=== PATIENT | male | born 1985 | race Hispanic/Latino ===

== ENCOUNTER 2018-08-08 07:54 | Outpatient (CLI) | payer OTHER ==
--- NOTE | 2018-08-08 09:21 | ULT ---
LIMITED SONOGRAM OF THE LEFT UPPER QUADRANT SOFT TISSUES: DATE: 08/08/2018. HISTORY: Abdominal wall mass, palpable abnormality. FINDINGS: Limited sonographic evaluation of the left upper quadrant was performed. No mass or cystic lesion is seen to correspond to the patient's palpable abnormality. Imaging of the soft tissues in the right upper quadrant was also performed and the soft tissues overall have a symmetric appearance. IMPRESSION: No cystic or solid lesion or other abnormality is seen to correspond to the patient's clinically palp able abnormality. Depending on clinical concern, a CT examination can be performed for further evalu ation. POS: ANTONY
== END 2018-08-08 07:55 | disposition home or self-care (01) ==
LOC: SCSULT 07:54
PROVIDERS: ATTEND Family Medicine
DX: M79.9 Soft tissue disorder, unspecified (principal)
CPT/HCPCS: 76705

== ENCOUNTER 2020-04-22 10:02 | Outpatient (CLI) | payer OTHER ==
--- NOTE | 2020-04-22 11:46 | CT ---
CT ABDOMEN AND PELVIS WITH AND WITHOUT IV CONTRAST 04/22/2020 CLINICAL INFORMATION: Microscopic hematuria COMPARISON: None. Technique: Multiple contiguous axial CT images are obtained through the abdomen and pelvis with IV contrast. Cor onal reformatted images are provided. FINDINGS: Lower Chest: Lung bases are clear. Vessels: Abdominal aorta is normal in caliber without evidence of an aortic dissection. Abdomen: Portal vein:Patent Gallbladder: Within normal limits for CT imaging. Liver: within normal limits. Spleen: within normal limits. Pancreas: within normal limits. Adrenals: within normal limits. Kidneys: No renal or ureteral calculi are seen bilaterally, and there is no hydronephrosis. No enhanc ing renal mass is identified. No ureteral calculus is present Bowel: Small amount retained fecal material seen throughout the colon. Loops of small bowel are alie l in caliber Appendix: The appendix is visualized and normal in caliber. Peritoneum: No ascites or free air; no fluid collection. Mesentery and Retroperitoneum: No enlarged mesenteric or retroperitoneal lymph nodes. Abdominal Wall: within normal limits. Pelvis: Reproductive Organs: No pelvic masses. Pelvis within normal limits. Bladder: within normal limits. Bones: No suspicious lytic or sclerotic osseous lesions are identified. IMPRESSION: 1. No acute findings in the abdomen or pelvis. 2. No renal or ureteral calculi are seen bilaterally, and there is no hydronephrosis. No enhancing re nal mass is identified.
== END 2020-04-22 10:03 | disposition home or self-care (01) ==
LOC: SCSCT 10:02
PROVIDERS: ATTEND Family Medicine
DX: R31.21 Asymptomatic microscopic hematuria (principal)
CPT/HCPCS: 74178

== ENCOUNTER 2024-03-27 17:54 | Emergency (ER) | payer OTHER, SELFPAY ==
[2024-03-27] MEDS ORDERED: Cyclobenzaprine 10 MG TAB ONE (18:47)
[2024-03-27] MEDS ORDERED: Acetaminophen 325 MG TAB ONE (18:47)
[2024-03-27] MEDS ORDERED: Lidocaine 4% Patch TD SCH (19:00)
[2024-03-28] MEDS ORDERED: Transdermal Patch Removal TOP SCH (08:00)
== END 2024-03-27 19:40 | disposition home or self-care (01) ==
LOC: ERS 17:54
DX: S29.012A Strain of muscle and tendon of back wall of thorax, initial encounter (principal); X50.1XXA Overexertion from prolonged static or awkward postures, initial encounter; Y93.89 Activity, other specified
CPT/HCPCS: 72072